=== PATIENT | male | born 1970 | race Two or more races ===

== ENCOUNTER → 2024-10-02 | Emergency (ER) | payer OTHER ==
[~2024-10-02] VITALS: Ht 175.3 cm; Wt 86.2 kg
[~2024-10-02] MED LIST: 8 HOUR650 MG PO; BACLOFEN10 MG PO; DEXAMETHASONE SODIUM PHOSPHATE 4 MG/ML VIAL IM ONE; DEXAMETHASONE SODIUM PHOSPHATE 4 MG/ML VIAL ONE; ORPHENADRINE CITRATE 100 MG TABLET PO ONE
== END | disposition home or self-care (01) ==
LOC: ER 16:49
DX: M75.52 Bursitis of left shoulder (principal); Z88.6 Allergy status to analgesic agent